=== PATIENT | male | born 1985 | race Caucasian/White ===

== ENCOUNTER 2017-01-07 19:42 | Emergency (ER) | payer BC | END 2017-01-07 21:10 | disposition home or self-care (01) | LOC: ER 19:42 | DX: J18.9 Pneumonia, unspecified organism (principal); J40 Bronchitis, not specified as acute or chronic; J84.9 Interstitial pulmonary disease, unspecified; R05 Cough; E05.00 Thyrotoxicosis with diffuse goiter without thyrotoxic crisis or storm; Z79.899 Other long term (current) drug therapy; Z88.0 Allergy status to penicillin ==